=== PATIENT | female | born 1950 ===

== ENCOUNTER 2017-10-04 06:10 | Day surgery (SDC) | payer OTHER ==
[~2017-10-04 06:10] MED LIST: AMLODIPINE BESYL5 MG PO; LEVO-T75 MCG PO; TOPROL XL50 M1 PO; VALSARTAN-HCTZ1 EAC4 PO
== END 2017-10-04 18:45 | disposition home or self-care (01) ==
LOC: CIR.AMB 06:10
DX: M18.11 Unilateral primary osteoarthritis of first carpometacarpal joint, right hand (principal)

== ENCOUNTER 2021-10-01 07:35 | Outpatient (CLI) | payer OTHER | END 2021-10-01 07:42 | disposition home or self-care (01) | LOC: MAMO-SONO 07:35 | PROVIDERS: ATTEND Obstetrics & Gynecology | DX: N60.11 Diffuse cystic mastopathy of right breast (principal); N60.12 Diffuse cystic mastopathy of left breast ==